=== PATIENT | female | born 1980 | race Caucasian/White ===

== ENCOUNTER 2017-11-24 10:33 | Emergency (ER) | payer SELFPAY ==
[2017-11-24 10:44] VITALS: BP 116/74; PULSE 93; TEMP 97.9; BMI 31.3
--- NOTE | 2017-11-24 11:38 | PDOC ---
History of Present Illness - General Chief Complaint: Abscess Boil Stated Complaint: PAIN IN VAGINA/HAS A BALL INSIDE Time Seen by Provider: 11/24/17 11:08 History Source: Patient Exam Limitations: No Limitations - History of Present Illness Initial Comments: 11/24/17 11:32 37 yr female with c/o abscess to vaginal area for one week, has had same in the past. no fever, no current medical history. Timing/Duration: reports: getting worse Severity: Yes: mild Past History - Past Medical History Allergies/Adverse Reactions: Allergies Allergy/AdvReac Type Severity Reaction Status Date / Time No Known Allergies Allergy Verified 11/24/17 10:41 Home Medications: Ambulatory Orders NK [No Known Home Medication] 11/24/17 COPD: No - Immunization History Immunization Up to Date: Yes - Suicide/Smoking/Psychosocial Hx Smoking History: Never smoked Review of Systems - Review of Systems Able to Perform ROS?: Yes Is the patient limited Lao proficient: No Constitutional: No: Symptoms Reported HEENTM: No: Symptoms Reported Respiratory: No: Symptoms reported Cardiac (ROS): No: Symptoms Reported ABD/GI: No: Symptoms Reported : Yes: Symptoms Reported *Physical Exam - Vital Signs Last Vital Signs Temp Pulse Resp BP Pulse Ox 97.9 F 93 H 18 116/74 99 11/24/17 10:42 11/24/17 10:42 11/24/17 10:42 11/24/17 10:42 11/24/17 10:42 - Physical Exam General Appearance: Yes: Nourished, Appropriately Dressed HEENT: positive: EOMI, ARMIN Neck: positive: Supple Respiratory/Chest: positive: Lungs Clear, Normal Breath Sounds Cardiovascular: positive: Regular Rhythm, Regular Rate Female Pelvic Exam: positive: normal external exam, other (right bathrolin abscess 1.5cm fluctunat, no cellulitus). negative: CMT, discharge, lesions Musculoskeletal: positive: Normal Inspection Extremity: positive: Normal Capillary Refill, Normal Inspection, Normal Range of Motion Integumentary: positive: Normal Color, Dry, Warm Neurologic: positive: senior procurement manager II-XII NML intact, Fully Oriented, Alert, Normal Mood/ Affect Procedures - Incision and Drainage I&D Site: Right: Bartholin (1cm abscess fluctuant no surrounding erythema ) Betadine cleansed: Yes Anesthesia: 1% Lidocaine Volume(ml): 1 Blade Size: 10 Attempts: 2 Plain Packing: No Complications: none Dressing: Yes Progress: 11/24/17 11:44 small amount of copious pus returned drained well tolerated well *DC/Admit/Observation/Transfer Diagnosis at time of Disposition: Bartholin's gland abscess - Discharge Dispostion Disposition: HOME Condition at time of disposition: Good - Referrals Referrals: Yola Alarcon MD [Primary Care Provider] - - Patient Instructions Printed Discharge Instructions: DI for Incision and Drainage of a Skin Abscess Additional Instructions: frequent warm moist towels to the area 4-5 times a day to help it continue to drain take ibuprofen 800mg every 8hrs for pain follow with next available appointment - Post Discharge Activity
== END 2017-11-24 11:49 | disposition home or self-care (01) ==
LOC: JERFT 10:33
PROC: 0U9L0ZZ Drainage of Vestibular Gland, Open Approach (ICD-10-PCS; principal; 2017-11-24)
DX: N75.1 Abscess of Bartholin's gland (principal)
CPT/HCPCS: 99281-25